=== PATIENT | female | born 1955 | race Caucasian/White ===

== ENCOUNTER 2021-07-14 10:39 | Observation (INO) | payer MEDICARE ==
[2021-07-14 11:34] LABS: #Eosinphils 0.1 10x3/uL (0.0-0.5); #Neutrophils 9.9 10x3/uL (1.5-8.4); %Basophils 0.2 % (0.0-2.0); %Eosinophils 0.8 % (0.0-6.0); %Lymphocytes 16.7 % (18.0-47.0); %Monocytes 7.2 % (0.0-10.0); %Neutrophils 74.8 % (40.0-75.0); Mean Corpuscular HGB CONC 33.2 g/dL (32.0-36.0); Mean Corpuscular Volume 84.3 fl (81.6-98.3); Mean Platelet Volume 9.8 fl (7.4-10.4); Platelet Count 326 10x3/uL (150-450); RBC Distribution Width 13.7 % (11.5-14.5); Red Blood Cell (RBC) Count 4.65 10x6/uL (3.90-5.03); White Blood Cell (WBC) Count 13.3 10x3/uL (3.5-10.5)
[2021-07-14 11:47] LABS: ALT (SGPT) 16 U/L (8-55); AST (SGOT) 11 U/L (5-34); Albumin 4.3 g/dL (3.4-4.8); Alkaline Phosphatase 59 U/L (40-110); Anion Gap 15 mmol/L (10-20); BUN (Urea Nitrogen) 15 mg/dL (9.8-20.1); Bilirubin, Total 0.5 mg/dL (0.2-1.2); Calc. Creatinine Clearance 0 mL/min (70-130); Carbon Dioxide 28 mmol/L (23-31); Chloride 97 mmol/L (98-107); Globulin 2.4 g/dL (2.4-3.5); Glucose 146 mg/dL (80-115); Potassium 3.7 mmol/L (3.5-5.1); Protein, Total 6.7 g/dL (5.8-8.1); Sodium 136 mmol/L (136-145)
[2021-07-14 13:47] LABS: SARS-CoV-2 NAA Rapid Test Not Detected (NotDetected)
[2021-07-14 13:52] LABS: Troponin I Less than 0.010 ng/mL (< 0.028)
[2021-07-14 17:52] LABS: Troponin I Less than 0.010 ng/mL (< 0.028)
[2021-07-14] MEDS ORDERED: Ondansetron ODT 4 MG TAB PO PRN (18:01)
[2021-07-14] MEDS ORDERED: Nitroglycerin 0.4 MG TAB (25 Tab Bottle) SL PRN (18:01)
[2021-07-14] MEDS ORDERED: Acetaminophen 650 MG Suppository PR PRN (18:01)
[2021-07-14] MEDS ORDERED: Ondansetron PF 4 MG/2 ML Vial IVP PRN (18:01)
[2021-07-14] MEDS ORDERED: hydrALAZINE 20 MG/ML VIAL SLOW IVP PRN (18:11)
[2021-07-14] MEDS ORDERED: Atorvastatin Calcium 40 MG TAB PO SCH (21:00)
[2021-07-14 21:23] VITALS: BMI 43.4
[2021-07-14] MEDS ORDERED: Aspirin Chewable 81 MG TAB PO SCH (21:30)
[2021-07-14] MEDS ORDERED: metFORMIN 500 MG TAB PO SCH (21:45)
[2021-07-15] MEDS: Acetaminophen 325 MG TAB PO PRN ×4 (03:13→15:54)
[2021-07-15 05:45] LABS: Anion Gap 13 mmol/L (10-20); BUN (Urea Nitrogen) 16 mg/dL (9.8-20.1); Calc. Creatinine Clearance 129 mL/min (70-130); Calcium 9.3 mg/dL (7.8-10.44); Carbon Dioxide 29 mmol/L (23-31); Cardiac Risk 2.9 (Less than 4.5); Chloride 98 mmol/L (98-107); Cholesterol 106 mg/dl (< 200 Desired); Glucose 132 mg/dL (80-115); HDL Cholesterol 37 mg/dL (>60 Neg Risk); LDL Cholesterol, Calculated 43 mg/dL; Potassium 3.3 mmol/L (3.5-5.1); Sodium 137 mmol/L (136-145); Triglycerides 130 mg/dL (Less than 150)
[2021-07-15 05:51] LABS: #Basophils 0.1 10x3/uL (0.0-0.2); #Eosinphils 0.2 10x3/uL (0.0-0.5); #Neutrophils 6.5 10x3/uL (1.5-8.4); %Basophils 0.4 % (0.0-2.0); %Eosinophils 1.9 % (0.0-6.0); %Lymphocytes 31.5 % (18.0-47.0); %Monocytes 8.6 % (0.0-10.0); %Neutrophils 57.2 % (40.0-75.0); Hemoglobin 11.9 g/dL (12.0-15.5); Mean Corpuscular HGB CONC 32.2 g/dL (32.0-36.0); Mean Corpuscular Hemoglobin 27.4 pg (27.0-33.0); Mean Corpuscular Volume 85.3 fl (81.6-98.3); Mean Platelet Volume 10.1 fl (7.4-10.4); Platelet Count 307 10x3/uL (150-450); RBC Distribution Width 13.9 % (11.5-14.5); Red Blood Cell (RBC) Count 4.34 10x6/uL (3.90-5.03); White Blood Cell (WBC) Count 11.3 10x3/uL (3.5-10.5)
[2021-07-15] MEDS: metFORMIN 500 MG TAB PO SCH ×2 (08:35→15:55)
[2021-07-15] MEDS ORDERED: Aspirin Chewable 81 MG TAB PO SCH (09:00)
[2021-07-15] MEDS ORDERED: Lisinopril 5 MG TAB PO SCH (11:15)
[2021-07-15] MEDS ORDERED: Potassium Chloride 20 MEQ TAB PO SCH (17:00)
[2021-07-15 17:10] VITALS: BP 148/60; TEMP 97.9
[2021-07-16] MEDS ORDERED: Lisinopril 5 MG TAB PO SCH (09:00)
[2021-07-16] MEDS ORDERED: Levothyroxine Sodium 125 MCG TAB PO SCH (09:00)
[2021-07-16] MEDS ORDERED: Atorvastatin Calcium 40 MG TAB PO SCH (09:00)
[2021-07-16] MEDS ORDERED: Amlodipine 10 MG TAB PO SCH (09:00)
== END 2021-07-15 17:45 | disposition home or self-care (01) ==
LOC: CSHERS 10:39 → CSHTELE 20:55
PROVIDERS: ADMIT Student in an Organized Health Care Education/Training Program; ATTEND Student in an Organized Health Care Education/Training Program
DX: R07.9 Chest pain, unspecified (principal); I10 Essential (primary) hypertension; E78.5 Hyperlipidemia, unspecified; E11.9 Type 2 diabetes mellitus without complications; Z79.899 Other long term (current) drug therapy; Z79.84 Long term (current) use of oral hypoglycemic drugs; Z20.822 Contact with and (suspected) exposure to COVID-19
CPT/HCPCS: 71045; 80048; 80053; 80061; 82962; 83690; 84484 ×2; 85025 ×2; 93005; 93306; 99285; G0378 ×3; U0002; 36415; 36416